=== PATIENT | male | born 1985 | race African-American/Black ===

== ENCOUNTER 2019-06-21 02:02 | Emergency (ER) | payer MEDICAID ==
[~2019-06-21] VITALS: Ht 185.4 cm; Wt 100.0 kg
[~2019-06-21 02:02] MED LIST: NAPR220T66
[2019-06-21] MEDS ORDERED: ACETAMINOPHEN 325MG TABLET PO ONE (03:00)
[2019-06-21] MEDS ORDERED: IBUPROFEN 600MG TABLET PO ONE (04:30)
[2019-06-21 04:47] VITALS: BP 124/76
== END 2019-06-21 04:48 | disposition home or self-care (01) ==
LOC: ER 02:02
DX: S06.9X9A Unspecified intracranial injury with loss of consciousness of unspecified duration, initial encounter (principal); Z88.0 Allergy status to penicillin; Y04.0XXA Assault by unarmed brawl or fight, initial encounter; Y93.89 Activity, other specified; Y92.018 Other place in single-family (private) house as the place of occurrence of the external cause
CPT/HCPCS: 99284

== ENCOUNTER 2019-08-29 11:31 | Emergency (ER) | payer MEDICAID ==
[~2019-08-29] VITALS: Ht 185.4 cm; Wt 100.0 kg
[2019-08-29 11:33] VITALS: BP 136/84
[2019-08-29] MEDS ORDERED: IBUPROFEN 600MG TABLET PO STA (12:08)
== END 2019-08-29 14:44 | disposition home or self-care (01) ==
LOC: ER 11:44
DX: M25.572 Pain in left ankle and joints of left foot (principal); M25.571 Pain in right ankle and joints of right foot; Z59.0 Homelessness
CPT/HCPCS: 73600; 73630; 99284

== ENCOUNTER 2021-09-07 09:34 | Emergency (ER) | payer MEDICAID ==
[~2021-09-07] VITALS: Ht 182.9 cm; Wt 82.0 kg
[2021-09-07] MEDS ORDERED: LORAZEPAM 2MG/ML CPJ IV ONE (10:45)
[2021-09-07 10:53] LABS: CHLORIDE 111 mEq/L (98-107)
[2021-09-07 11:02] LABS: ETHANOL BLOOD < 10 mg/dL
[2021-09-07 11:10] LABS: BASOPHILS % 0.7 % (0.0-2.0); EOSINOPHILS % 0.2 % (0.0-5.0); HEMATOCRIT. 40.6 % (42.0-52.0); HEMOGLOBIN. 13.4 g/dL (14.0-18.0); LYMPHOCYTES % 15.5 % (20.0-50.0); MEAN CORPUSCULAR HEMOGLOBIN 26.9 pg (28.0-32.0); MEAN CORPUSCULAR VOLUME 81.6 fL (80.0-94.0); MEAN PLATELET VOLUME 8.1 fl (7.4-10.4); MONOCYTES % 12.8 % (2.0-8.0); NEUTROPHILS % 70.8 % (40.0-76.0); PLATELET 266 x1000/uL (130-400); RED BLOOD CELL COUNT 4.98 mill/uL (4.7-6.1); RED CELL DISTRIBUTION WIDTH 14.5 % (11.6-14.6)
[2021-09-07 19:35] LABS: CLARITY URINE CLEAR (CLEAR); COLOR URINE DARK YELLOW (YELLOW); KETONES URINE 2+ (NEGATIVE); LEUKOCYTE ESTERASE URINE NEGATIVE (NEGATIVE); NITRITE URINE NEGATIVE (NEGATIVE); OCCULT BLOOD URINE NEGATIVE (NEGATIVE); PH URINE 5.5 (4.5-8.0); PROTEIN URINE 1+ (NEGATIVE); SPECIFIC GRAVITY URINE 1.029 (1.005-1.030)
[2021-09-07 19:47] LABS: *AMPHETAMINES SCREEN URINE PRESUMTIVE POSITIVE (NEGATIVE); *BARBITURATES SCREEN URINE NEGATIVE (NEGATIVE); *BENZODIAZEPINES SCREEN URINE NEGATIVE (NEGATIVE); *COCAINE SCREEN URINE NEGATIVE (NEGATIVE); CANNABINOID URINE SCREEN PRESUMTIVE POSITIVE (NEGATIVE); METHADONE URINE SCREEN NEGATIVE (NEGATIVE); OPIATES URINE SCREEN NEGATIVE (NEGATIVE); PHENCYCLIDINE URINE SCREEN NEGATIVE (NEGATIVE)
[2021-09-07] MEDS ORDERED: QUETIAPINE FUMARATE 50MG TABLET PO SCH (23:00)
[2021-09-08] MEDS: BUPROPION HCL 150MG SR TABLET PO SCH (18:00)
[2021-09-08] MEDS: GABAPENTIN 300MG CAPSULE PO SCH ×2 (18:01→22:00)
[2021-09-08] MEDS ORDERED: QUETIAPINE FUMARATE 50MG TABLET PO SCH (21:00)
[2021-09-09] MEDS: GABAPENTIN 300MG CAPSULE PO SCH (06:23)
[2021-09-09] MEDS: BUPROPION HCL 150MG SR TABLET PO SCH (09:53)
[2021-09-09 12:30] VITALS: BP 123/79
== END 2021-09-09 15:46 ==
LOC: ER 09:34
DX: T43.622A Poisoning by amphetamines, intentional self-harm, initial encounter (principal); F33.3 Major depressive disorder, recurrent, severe with psychotic symptoms; F15.129 Other stimulant abuse with intoxication, unspecified; R07.89 Other chest pain; R00.0 Tachycardia, unspecified; Z20.822 Contact with and (suspected) exposure to COVID-19; F12.90 Cannabis use, unspecified, uncomplicated; F16.90 Hallucinogen use, unspecified, uncomplicated; R45.5 Hostility; R03.0 Elevated blood-pressure reading, without diagnosis of hypertension; Y93.02 Activity, running; Y92.488 Other paved roadways as the place of occurrence of the external cause
CPT/HCPCS: 36415; 71045; 80053; 80305; 80307; 80320; 80329; 81003; 84484; 85025; 93005; 96374; 99285; C9803; J2060; U0003; U0005; G0480

== ENCOUNTER 2021-10-22 03:23 | Emergency (ER) | payer MEDICAID ==
[~2021-10-22] VITALS: Ht 185.4 cm; Wt 105.0 kg
[2021-10-22] MEDS ORDERED: BUPR-102 MT (04:16)
[2021-10-22] MEDS ORDERED: GABA-290 MT (04:16)
[2021-10-22 04:48] VITALS: BP 125/75
== END 2021-10-22 04:48 | disposition home or self-care (01) ==
LOC: ER 03:23
DX: Z76.0 Encounter for issue of repeat prescription (principal); F41.9 Anxiety disorder, unspecified; F32.A Depression, unspecified; F12.10 Cannabis abuse, uncomplicated; F15.10 Other stimulant abuse, uncomplicated; F43.10 Post-traumatic stress disorder, unspecified; Z88.0 Allergy status to penicillin
CPT/HCPCS: 99283

== ENCOUNTER 2022-03-28 13:42 | Emergency (ER) | payer MEDICAID, OTHER ==
[~2022-03-28] VITALS: Ht 188 cm; Wt 91.0 kg
[~2022-03-28 13:42] MED LIST changes: +BUPR-102 MT; +GABA-290 MT
[2022-03-28 15:19] LABS: BASOPHILS % 1.2 % (0.0-2.0); EOSINOPHILS % 0.9 % (0.0-5.0); HEMATOCRIT. 32.8 % (42.0-52.0); HEMOGLOBIN. 10.7 g/dL (14.0-18.0); LYMPHOCYTES % 24.7 % (20.0-50.0); MEAN CORPUSCULAR HEMOGLOBIN 23.9 pg (28.0-32.0); MEAN CORPUSCULAR VOLUME 73.6 fL (80.0-94.0); MEAN PLATELET VOLUME 7.1 fl (7.4-10.4); MONOCYTES % 12.2 % (2.0-8.0); PLATELET 267 x1000/uL (130-400); RED BLOOD CELL COUNT 4.46 mill/uL (4.7-6.1); RED CELL DISTRIBUTION WIDTH 17.8 % (11.6-14.6)
[2022-03-28] MEDS: FLUOXETINE HCL 10 MG CAPSULE PO SCH (16:00)
[2022-03-28 17:12] LABS: ETHANOL BLOOD < 10 mg/dL
[2022-03-28 17:21] LABS: CHLORIDE 103 mEq/L (98-107)
[2022-03-28 18:07] LABS: *AMPHETAMINES SCREEN URINE PRESUMTIVE POSITIVE (NEGATIVE); *BARBITURATES SCREEN URINE NEGATIVE (NEGATIVE); *BENZODIAZEPINES SCREEN URINE NEGATIVE (NEGATIVE); *COCAINE SCREEN URINE NEGATIVE (NEGATIVE); CANNABINOID URINE SCREEN PRESUMTIVE POSITIVE (NEGATIVE); METHADONE URINE SCREEN NEGATIVE (NEGATIVE); OPIATES URINE SCREEN NEGATIVE (NEGATIVE); PHENCYCLIDINE URINE SCREEN NEGATIVE (NEGATIVE)
[2022-03-28] MEDS: QUETIAPINE FUMARATE 50MG TABLET PO SCH (21:45)
[2022-03-28] MEDS: GABAPENTIN 300MG CAPSULE PO SCH (22:00)
[2022-03-29] MEDS: GABAPENTIN 300MG CAPSULE PO SCH (06:00)
[2022-03-29 06:57] VITALS: BP 135/77
[2022-03-29] MEDS: QUETIAPINE FUMARATE 50MG TABLET PO SCH (09:33)
[2022-03-29] MEDS: FLUOXETINE HCL 10 MG CAPSULE PO SCH (09:33)
== END 2022-03-29 12:30 | disposition home or self-care (01) ==
LOC: ER 14:52
DX: F15.288 Other stimulant dependence with other stimulant-induced disorder (principal); F16.10 Hallucinogen abuse, uncomplicated; F12.10 Cannabis abuse, uncomplicated; F33.1 Major depressive disorder, recurrent, moderate; R45.851 Suicidal ideations; F20.0 Paranoid schizophrenia; S90.31XA Contusion of right foot, initial encounter; X58.XXXA Exposure to other specified factors, initial encounter; Y93.89 Activity, other specified; Y92.89 Other specified places as the place of occurrence of the external cause; R45.1 Restlessness and agitation; R20.8 Other disturbances of skin sensation; Z77.098 Contact with and (suspected) exposure to other hazardous, chiefly nonmedicinal, chemicals; M79.672 Pain in left foot; M79.642 Pain in left hand; M79.641 Pain in right hand; Z20.822 Contact with and (suspected) exposure to COVID-19; R03.0 Elevated blood-pressure reading, without diagnosis of hypertension; Z88.0 Allergy status to penicillin
CPT/HCPCS: 36415; 73620; 80048; 80305; 80307; 80320; 80329; 85025; 87426; 99285; Z7610; G0480

== ENCOUNTER 2024-04-27 01:45 | Emergency (ER) | payer MEDICAID, OTHER ==
[~2024-04-27] VITALS: Ht 185.4 cm; Wt 96.0 kg
[2024-04-27 01:58] VITALS: O2SAT 100
[2024-04-27] MEDS: OLANZAPINE 5MG TABLET PO SCH (03:13)
[2024-04-27] MEDS: ACETAMINOPHEN 500MG TABLET PO ONE (03:13)
[2024-04-27 03:56] LABS: CHLORIDE 107 mEq/L (98-107); POTASSIUM 4.2 mEq/L (3.5-5.1); SODIUM 140 mEq/L (136-145)
[2024-04-27 03:57] LABS: CARBON DIOXIDE 25 mEq/L (21-32)
[2024-04-27 03:58] LABS: CALCIUM 9.2 mg/dL (8.7-10.4); CLARITY URINE CLEAR (CLEAR); COLOR URINE YELLOW (YELLOW); GLUCOSE URINE NEGATIVE (NEGATIVE); KETONES URINE NEGATIVE (NEGATIVE); LEUKOCYTE ESTERASE URINE NEGATIVE (NEGATIVE); NITRITE URINE NEGATIVE (NEGATIVE); OCCULT BLOOD URINE NEGATIVE (NEGATIVE); PH URINE 6.5 (4.5-8.0); PROTEIN URINE NEGATIVE (NEGATIVE)
[2024-04-27 03:59] LABS: BASOPHILS % 1.1 % (0.0-2.0); EOSINOPHILS % 4.8 % (0.0-5.0); HEMATOCRIT. 38.2 % (42.0-52.0); HEMOGLOBIN. 12.3 g/dL (14.0-18.0); LYMPHOCYTES % 31.3 % (20.0-50.0); MEAN CORPUSCULAR HEMOGLOBIN 26.6 pg (28.0-32.0); MEAN CORPUSCULAR HGB CONC 32.2 g/dL (31.0-37.0); MEAN CORPUSCULAR VOLUME 82.7 fL (80.0-94.0); MEAN PLATELET VOLUME 7.9 fl (7.4-10.4); MONOCYTES % 9.3 % (2.0-8.0); NEUTROPHILS % 53.5 % (40.0-76.0); PLATELET 266 x1000/uL (130-400); RED BLOOD CELL COUNT 4.62 mill/uL (4.7-6.1); RED CELL DISTRIBUTION WIDTH 15.3 % (11.6-14.6); WHITE BLOOD COUNT 7.7 x1000/uL (4.5-11.0)
[2024-04-27 04:02] LABS: CREATININE 0.9 mg/dL (0.6-1.3); GLUCOSE 105 mg/dL (70-105)
[2024-04-27 04:03] LABS: UREA NITROGEN BLOOD 14 mg/dL (9-23)
[2024-04-27 04:04] LABS: ACETAMINOPHEN < 2 ug/mL (10-30); ALANINE AMINOTRANSFERASE 26 IU/L (10-49); ALBUMIN 4.3 g/dL (3.2-4.8); ASPARTATE AMINOTRANSFERASE 33 IU/L (<34)
[2024-04-27 04:05] LABS: BILIRUBIN TOTAL 0.4 mg/dL (0.1-1.0); PROTEIN TOTAL 6.9 g/dL (6.0-8.3)
[2024-04-27 04:06] LABS: ETHANOL BLOOD < 10 mg/dL (<10)
[2024-04-27 05:10] LABS: *AMPHETAMINES SCREEN URINE PRESUMPTIVE POSITIVE (NEGATIVE); *BARBITURATES SCREEN URINE NEGATIVE (NEGATIVE); *BENZODIAZEPINES SCREEN URINE NEGATIVE (NEGATIVE); *COCAINE SCREEN URINE NEGATIVE (NEGATIVE); METHADONE URINE SCREEN NEGATIVE (NEGATIVE)
[2024-04-27 05:11] LABS: CANNABINOID URINE SCREEN PRESUMPTIVE POSITIVE (NEGATIVE); ECSTASY MDMA SCREEN URINE NEGATIVE (NEGATIVE); OPIATES URINE SCREEN NEGATIVE (NEGATIVE); PHENCYCLIDINE URINE SCREEN NEGATIVE (NEGATIVE)
[2024-04-27 18:03] VITALS: BP 130/84; PULSE 70; RESP 18; TEMP 36.89184; O2SAT 100
== END 2024-04-27 19:50 ==
LOC: ER 01:45
DX: R45.851 Suicidal ideations (principal); S09.90XA Unspecified injury of head, initial encounter; F12.10 Cannabis abuse, uncomplicated; F15.10 Other stimulant abuse, uncomplicated; F32.A Depression, unspecified; F41.9 Anxiety disorder, unspecified; Z20.822 Contact with and (suspected) exposure to COVID-19; Z98.890 Other specified postprocedural states; Z86.59 Personal history of other mental and behavioral disorders; Y04.0XXA Assault by unarmed brawl or fight, initial encounter; Y93.89 Activity, other specified; Y92.89 Other specified places as the place of occurrence of the external cause; Y99.8 Other external cause status
CPT/HCPCS: 36415; 80053; 80305; 80307; 80320; 80329; 81003; 85025; 87426; 99285; G0480

== ENCOUNTER 2024-06-03 11:41 | Emergency (ER) | payer MEDICAID, OTHER ==
[~2024-06-03] VITALS: Ht 180.3 cm; Wt 90.0 kg
[2024-06-03 11:42] VITALS: O2SAT 99
[2024-06-03] MEDS: DIPHENHYDRAMINE 50MG/ML VIAL IM STA (12:14)
[2024-06-03] MEDS: LORAZEPAM 2MG/ML INJ IM STA (12:14)
[2024-06-03 14:45] LABS: BASOPHILS % 0.9 % (0.0-2.0); EOSINOPHILS % 2.3 % (0.0-5.0); HEMATOCRIT. 33.9 % (42.0-52.0); HEMOGLOBIN. 10.9 g/dL (14.0-18.0); LYMPHOCYTES % 20.6 % (20.0-50.0); MEAN CORPUSCULAR HEMOGLOBIN 26.4 pg (28.0-32.0); MEAN CORPUSCULAR HGB CONC 32.2 g/dL (31.0-37.0); MEAN CORPUSCULAR VOLUME 81.9 fL (80.0-94.0); MONOCYTES % 8.4 % (2.0-8.0); NEUTROPHILS % 67.8 % (40.0-76.0); PLATELET 229 x1000/uL (130-400); RED BLOOD CELL COUNT 4.13 mill/uL (4.7-6.1); RED CELL DISTRIBUTION WIDTH 14.8 % (11.6-14.6); WHITE BLOOD COUNT 6.9 x1000/uL (4.5-11.0)
[2024-06-03 14:51] LABS: CHLORIDE 106 mEq/L (98-107); POTASSIUM 3.7 mEq/L (3.5-5.1); SODIUM 140 mEq/L (136-145)
[2024-06-03 14:52] LABS: CALCIUM 8.9 mg/dL (8.7-10.4); CARBON DIOXIDE 27 mEq/L (21-32)
[2024-06-03 14:57] LABS: CREATININE 0.8 mg/dL (0.6-1.3); GLUCOSE 93 mg/dL (70-105); UREA NITROGEN BLOOD 12 mg/dL (9-23)
[2024-06-03 14:59] LABS: ACETAMINOPHEN < 2 ug/mL (10-30)
[2024-06-03 15:01] LABS: ETHANOL BLOOD < 10 mg/dL (<10)
[2024-06-03 17:28] LABS: CLARITY URINE CLEAR (CLEAR); COLOR URINE YELLOW (YELLOW); GLUCOSE URINE NEGATIVE (NEGATIVE); KETONES URINE TRACE (NEGATIVE); LEUKOCYTE ESTERASE URINE NEGATIVE (NEGATIVE); NITRITE URINE NEGATIVE (NEGATIVE); OCCULT BLOOD URINE NEGATIVE (NEGATIVE); PROTEIN URINE TRACE (NEGATIVE); SPECIFIC GRAVITY URINE 1.033 (1.005-1.030)
[2024-06-03 17:39] LABS: *AMPHETAMINES SCREEN URINE PRESUMPTIVE POSITIVE (NEGATIVE)
[2024-06-03 17:40] LABS: *BARBITURATES SCREEN URINE NEGATIVE (NEGATIVE); *BENZODIAZEPINES SCREEN URINE NEGATIVE (NEGATIVE); *COCAINE SCREEN URINE NEGATIVE (NEGATIVE); ECSTASY MDMA SCREEN URINE CONF.TEST INDICATED (NEGATIVE); METHADONE URINE SCREEN NEGATIVE (NEGATIVE); OPIATES URINE SCREEN NEGATIVE (NEGATIVE); PHENCYCLIDINE URINE SCREEN NEGATIVE (NEGATIVE)
[2024-06-03 17:50] LABS: CANNABINOID URINE SCREEN PRESUMPTIVE POSITIVE (NEGATIVE)
[2024-06-03 18:11] LABS: BACTERIA URINE TRACE; RBC URINE NONE SEEN /hpf (0-2); SQUAMOUS EPITHELIAL CELL URINE RARE /lpf (RARE/1+); WBC URINE NONE SEEN /hpf (0-2)
[2024-06-03] MEDS: HALOPERIDOL LACTATE 5MG/ML VIAL IM STA (18:20)
[2024-06-03] MEDS: LORAZEPAM 2MG/ML INJ IM ONE (20:12)
[2024-06-03] MEDS: HALOPERIDOL LACTATE 5MG/ML VIAL IM ONE (20:13)
[2024-06-03] MEDS: DIPHENHYDRAMINE 50MG/ML VIAL IM PRN (20:13)
[2024-06-04] MEDS: OLANZAPINE 5MG TABLET ODT PO SCH (09:33)
[2024-06-04 18:00] VITALS: BP 122/70; PULSE 72; RESP 18; TEMP 36.8; O2SAT 99
== END 2024-06-04 19:02 ==
LOC: ER 11:58
DX: R46.2 Strange and inexplicable behavior (principal); Z88.0 Allergy status to penicillin; Y90.9 Presence of alcohol in blood, level not specified; Z79.899 Other long term (current) drug therapy; Z20.822 Contact with and (suspected) exposure to COVID-19
CPT/HCPCS: 80305; 80048; 81003; 80307; 80329; 80320; 85025; 36415; 96372; 99285; 87426; J1200; J1630; J2060; G0480